=== PATIENT | male | born 1940 | race Caucasian/White ===

== ENCOUNTER 2018-02-10 11:18 | Day surgery (SDC) | payer MEDICARE, BC ==
[2018-02-10] VITALS (11 sets, daily range): BP systolic 112–135; BP diastolic 42–72; PULSE 47–70; TEMP 97.2–97.4
[~2018-02-10] VITALS: Ht 172.7 cm; Wt 66.0 kg
[2018-02-10] MEDS ORDERED: LYRICA 150MG C150 MG PO (11:39)
[2018-02-10] MEDS ORDERED: PROTONIX 40MG T40 MG PO (11:40)
[2018-02-10] MEDS ORDERED: TOPROL XL 50MG50 MG PO (11:40)
[2018-02-10] MEDS ORDERED: CENTRUM SILVER1 TA2 PO (11:41)
[2018-02-10] MEDS ORDERED: PRAVACHOL 40MG40 MG PO (11:41)
[2018-02-10] MEDS ORDERED: PROVIGIL 100MG100 MG PO (11:41)
[2018-02-10] MEDS ORDERED: ASPIRIN 81M81 MG/TA2 PO (11:41)
[2018-02-10] MEDS ORDERED: OSTEO-BI-FLEX 21 TAB PO (11:42)
[2018-02-10] MEDS ORDERED: FLOMAX 0.40.4 MG/CAP PO (11:42)
[2018-02-10] MEDS ORDERED: MIRAPEX 1MG PO (11:43)
[2018-02-10] MEDS ORDERED: NORVASC 10MG10 MG PO (11:43)
[2018-02-10] MEDS ORDERED: MELATONIN5 M1 SL (11:44)
[2018-02-11 05:13] VITALS: BP 116/51; PULSE 62; TEMP 97.8
[2018-02-11 08:48] VITALS: BP 97/54; PULSE 73; TEMP 98
[2018-02-11 11:44] VITALS: BP 121/55; PULSE 63; TEMP 97.2
== END 2018-02-11 14:58 | disposition home or self-care (01) ==
LOC: SDCO 11:18 → SURG 16:05 → SDCO 02-11 14:58
DX: N40.1 Benign prostatic hyperplasia with lower urinary tract symptoms (principal); R39.15 Urgency of urination; N39.43 Post-void dribbling; N47.1 Phimosis; I25.10 Atherosclerotic heart disease of native coronary artery without angina pectoris; K21.9 Gastro-esophageal reflux disease without esophagitis; E78.5 Hyperlipidemia, unspecified; I10 Essential (primary) hypertension; Z85.118 Personal history of other malignant neoplasm of bronchus and lung; Z85.828 Personal history of other malignant neoplasm of skin; G43.909 Migraine, unspecified, not intractable, without status migrainosus; Z79.899 Other long term (current) drug therapy; Z79.82 Long term (current) use of aspirin; Z87.891 Personal history of nicotine dependence; G47.33 Obstructive sleep apnea (adult) (pediatric); M19.90 Unspecified osteoarthritis, unspecified site
CPT/HCPCS: OP; J0690; J2250; J2405; J2704; J3010; J7120